=== PATIENT | male | born 1955 | race Caucasian/White ===

== ENCOUNTER → 2017-11-06 03:46 | Outpatient (CLI) | payer BC, SELFPAY ==
[2017-11-06 09:39] LABS: Anion Gap 8.7 mmol/L (3-11); BUN 17 mg/dL (7-18); CO2 30.3 mmol/L (21.0-32.0); CREATININE 1.07 mg/dL (0.70-1.30); Calcium 8.7 mg/dL (8.5-10.1); Chloride 105 mmol/L (98-107); Cholesterol 191 mg/dL (50-200); Glucose 92 mg/dL (70-100); HDL Cholesterol 67 mg/dL (40-60); LDL CHOLESTEROL 112 mg/dL (<100); Potassium 4.7 mmol/L (3.5-5.1); Sodium 144 mmol/L (136-145); Triglyceride 52 mg/dL (30-150)
== END ==
PROVIDERS: PCP Family Medicine; Visit Provider Family Medicine
DX: Z00.00 Encounter for general adult medical examination without abnormal findings (principal); Z13.220 Encounter for screening for lipoid disorders; Z13.228 Encounter for screening for other metabolic disorders
CPT/HCPCS: 36415; 80048; 80061; 83721

== ENCOUNTER 2020-11-07 02:20 | Outpatient (CLI) | payer MEDICARE, SELFPAY ==
[2020-11-07 10:46] LABS: ALT 48 U/L (16-63); AST 32 U/L (15-37); Alkaline Phosphatase 50 U/L (46-116); Anion Gap 8.6 mmol/L (3-11); BUN 21 mg/dL (7-18); Bilirubin, Total 0.6 mg/dL (0.2-1.0); CO2 29.4 mmol/L (21.0-32.0); Chloride 106 mmol/L (98-107); Glucose 96 mg/dL (74-106); Potassium 4.5 mmol/L (3.5-5.1); Sodium 144 mmol/L (136-145)
== END 2020-11-07 02:21 | disposition home or self-care (01) ==
LOC: LOS 02:21
DX: Z00.00 Encounter for general adult medical examination without abnormal findings (principal)
CPT/HCPCS: 36415; 80053

== ENCOUNTER → 2021-10-02 01:13 | Outpatient (CLI) | payer MEDICARE, SELFPAY ==
--- NOTE | 2021-10-02 08:00 | DI.MRI_ITS ---
Exam(s) MR IAC BRAIN WO/W EXAM: MR IAC BRAIN WO/W CLINICAL HISTORY: Left greater than right sensorineural hearing loss TECHNIQUE: Multiplanar multisequence MRI of the brain was performed. Both noninfused and contrast i nfused sequences were performed. IV Contrast injected was cc Dotarem. COMPARISON: No exams were available for comparison FINDINGS: IAC'S: This is a POSITIVE study. On the left side there is a mass lesion measuring 11 millimeters wide by 7 millimeters AP, straddling the IAC and porous acousticus on the left side. Three on the opposite-right side there is no mass a nd the 7th and 8th cranial nerves appear unremarkable within the right internal auditory canal. Following contrast injection this mass exhibits some enhancement. There is no restricted diffusion at this level nor elsewhere in the brain. No hemorrhage. No microh emorrhages. There is no significant signal abnormality in the cerebellar hemispheres nor within the charlene, midbrai n, and thalami nor within the periventricular white matter. There are no ring enhancing lesions in t he brain. No abnormal supratentorial meningeal enhancement. PITUITARY GLAND: No mass nor parasellar abnormality. No obvious abnormality in the cavernous sinuses. FLOW VOIDS: The expected flow void are noted. No evidence of obvious aneurysm nor obvious vascular ma lformation. PARANASAL SINUSES: The visualized paranasal sinuses appear unremarkable. ORBITS: No obvious abnormal findings. IMPRESSION: 1. There is an 11 x 7 millimeter enhancing lesion in the left internal auditory canal as described ab ove, exhibiting some enhancement following contrast injection. 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 2. No other abnormal intracranial findings. DATA REPOSITORY:
[2021-10-02] MEDS: Normal Saline Flush 10 ML SYR IVP (13:42)
[2021-10-02] MEDS: Gadoterate meglumine 20 ML SYRINGE IVP (13:42)
== END ==
PROVIDERS: Visit Provider Otolaryngology
DX: H90.3 Sensorineural hearing loss, bilateral (principal); H93.299 Other abnormal auditory perceptions, unspecified ear; H93.8X2 Other specified disorders of left ear
CPT/HCPCS: 70553; 82565

== ENCOUNTER 2022-07-08 10:58 | Outpatient (CLI) | payer MEDICARE, SELFPAY | END 2022-07-08 10:59 | disposition home or self-care (01) | PROVIDERS: PCP Nurse Practitioner Family; Visit Provider Family Medicine | DX: I48.91 Unspecified atrial fibrillation (principal) | CPT/HCPCS: 93246 ==

== ENCOUNTER 2022-08-12 12:43 | Outpatient (CLI) | payer MEDICARE, SELFPAY ==
--- NOTE | 2022-08-12 12:52 | W.CARDEVENT ---
Date of service: 08/12/22 Time of Service: 12:52 Cardiac Event Recorder Referring Provider:: Cathy Wheeler Indications:: Paroxysmal atrial fibrillation Cardiac Event Note: This is a 14-day cardiac event monitor Patient was in sinus rhythm for 99% of the recording, atrial fibrillation for 0.71%. Average heart rate in sinus was 66. Minimum was 43, maximum 148 There were rare atrial and ventricular ectopic beats Patient was in atrial fibrillation for 2 hours and 14 minutes of the recording, heart rate generally 100. Maximum rate was 170. Patient symptoms were reported. Some of these were associated with premature ventricular contractions, some to normal sinus rhythm, 1 episode to atrial fibrillation rate 125.
== END 2022-08-12 12:44 | disposition home or self-care (01) ==
LOC: CARDOPNVT 12:43
PROVIDERS: PCP Nurse Practitioner Family; Visit Provider Internal Medicine Cardiovascular Disease
DX: I48.0 Paroxysmal atrial fibrillation (principal); I49.1 Atrial premature depolarization; I49.3 Ventricular premature depolarization
CPT/HCPCS: 93248

== ENCOUNTER → 2022-09-11 08:43 | Outpatient (BNVA) | payer MEDICARE, SELFPAY | PROVIDERS: PCP Nurse Practitioner Family; Referring Provider Nurse Practitioner Family; Visit Provider Physical Therapy Assistant | DX: Z12.11 Encounter for screening for malignant neoplasm of colon (principal) ==

== ENCOUNTER 2022-09-24 01:34 | Outpatient (CLI) | payer MEDICARE, SELFPAY ==
--- NOTE | 2022-09-24 13:53 | DI.US_ITS ---
APPROVED REPORT EXAM: Comprehensive 2D, Doppler, and color-flow Echocardiogram Patient Location: Out-Patient [employer] T[employer] Installer: Wilton Cyr RDMS, RVT Indications: afib, eval cardiac structures Other Information Study Quality: Adequate Conclusion Normal left ventricular wall thickness and chamber size. Ejection fraction is 60%. Wall motion is n ormal Normal right ventricular size and systolic function Both atria are normal in size There is no structural or hemodynamically significant valvular disease Wall motion Left Ventricle The left ventricle is normal size. The left ventricular systolic function is normal. The left ventric ular ejection fraction is within the normal range. There is normal left ventricular wall thickness. T here is normal LV segmental wall motion. There is no ventricular septal defect visualized. LVEF is 60 %. Right Ventricle The right ventricle is normal size. The right ventricular systolic function is normal. There is norm al right ventricular wall thickness. Atria The left atrium size is normal. The right atrium size is normal. The interatrial septum is intact wit h no evidence for an atrial septal defect. Aortic Valve The aortic valve is normal in structure. Aortic valve is trileaflet. There is no aortic valvular sten osis. No aortic regurgitation is present. Mitral Valve The mitral valve is normal in structure. No evidence of mitral valve stenosis. Trace to mild mitral r egurgitation. Tricuspid Valve The tricuspid valve is normal in structure. There is no tricuspid valve stenosis. Trivial tricuspid r egurgitation. Unable to assess PA pressure. Pulmonic Valve The pulmonary valve is normal in structure. There is no pulmonic valvular stenosis. Trace pulmonic re gurgitation. Great Vessels The aortic root is normal in size. Ascending aorta is not well visualized. Aortic arch is normal in c aliber. IVC is normal in size and collapses >50% with inspiration. Pericardium There is no pericardial effusion. 2D Dimensions IVSD d PLAX 0.61 cm M: 0.6-1.2 LV Vol A2C d MOD 99.7 mL LVPW d PLAX 0.65 cm M: 0.6 - 1.2 LV Vol A4C d MOD 108.9 mL LVID d PLAX 5.27 cm M: 4.2 - 5.8 LA vol/ BSA A4C s A-L 15.2 mL/m2 LVDs 3.55 cm M: 2.5 - 4.0 LA Area A4C s MOD 14.78 cm2 Ao Root d 3.18 cm M: 3.1 - 3.7 LV EF A4C MOD 56.0 % LV EF Teichholz 59.9 % LV EF A2C MOD 55.4 % LVEF (Campbell's) 54.56 % M: 52 - 72 LV EF Biplane MOD 54.6 % LV Volume 76.84 mL M: 62 - 150 SV 57.98 mL LV Volume Index 34.30 mL/m2 M: 34 - 74 SV Index 25.87 mL/m2 LV Vol Biplane MOD 106.3 mL FS 32.10 % M-Mode TAPSE 1.80 cm (M/F) >1.7 LV Diastology MV E' medial 0.134 (>0.07 m/s) E/A Ratio 0.8 LV E/e MED 3.35 (<14) MV E Vmax 0.45 (0.4-1.3 m/s) MV E' lateral 0.137 (>0.1 m/s) MV A Vmax 0.60 (0.4-1.3 m/s) LV E/e LAT 3.25 (<14) MV E/A Ratio 0.74 MV E/E' medial 3.37 MV E/E' lateral 3.29 Aortic Valve LVOT Area 3.36 cm2 AoV Area Vmax 2.77 cm2 LVOT Vmax 1.05 m/s AoV Area/ BSA (Vmax) 1.24 cm2/m2 LVOT Mean Laz. 0.60 m/s VICKI Mean Laz. 2.39 cm2 LVOT Peak Grad 4.4 mmHg VICKI Mean Laz. Index 1.07 cm2/m2 LVOT Mean Grad 1.8 mmHg LVOT VTI 0.226 m LVOT Diam s 2.05 cm AoV Vmax 1.27 m/s Velocity Ratio 0.83 AoV Mean Laz. 0.85 m/s AoV Peak Grad 6.5 mmHg LVOT SV 75.90 mL AoV Mean Grad 3.2 mmHg AoV VTI 0.228 m AoV Area VTI 3.33 cm2 AoV Area/ BSA (VTI) 1.49 cm/m2 Mitral Valve MV DT 343 (160-240 msec) MV PHT 99 msec MV Area PHT 2.21 cm2 MV VTI 0.209 m MV Area VTI 3.63 (4.0-6.0 cm2) Pulmonary Valve PV Vmax 0.78 (0.5-1.5 m/s) RVOT Peak Gr. 0.85 mmHg PV Peak Grad 2.4 mmHg RVOT Mean Gr. 0.45 mmHg PV Mean Grad 1.1 mmHg RVOT VTI 0.082 m PV VTI 0.112 m RVOT Vmax 0.46 m/s Tricuspid Valve TR Peak Grad 0.0 mmHg TR Vmax 0.00 m/s RA Pressure 0.00 mmHg RVSP (TR) 0.0 mmHg
== END 2022-09-24 01:54 ==
LOC: DI 01:34
PROVIDERS: PCP Nurse Practitioner Family; Visit Provider Family Medicine
DX: I48.91 Unspecified atrial fibrillation (principal)
CPT/HCPCS: 93306

== ENCOUNTER 2022-09-29 07:45 | Day surgery (SDC) | payer MEDICARE, SELFPAY ==
--- NOTE | 2022-09-28 10:59 | W.PM.DSUDISC ---
Date of service: 09/29/22 Time of Service: 09:56 Discharge Plan Disposition Patient Disposition: Home Condition: Good Discharge Details Reason For Visit: Colonoscopy Attending Provider: Emmett Valencia Primary Care Provider: Meri Mercer Home Meds and New Rx's Prescriptions: Discontinued bisacodyl [Dulcolax (bisacodyl)] 5 mg tablet,delayed release (DR/EC) 5 mg PO ONCE Qty: 4 0RF Rx Instructions: Take per colonoscopy instructions provided by ordering providers office polyethylene glycol 3350 17 gram/dose powder 17 g PO ONCE Qty: 238 0RF Rx Instructions: Take per colonoscopy instructions provided by ordering providers office Discharge Instructions Additional Instructions: Pat , we were able to finish her colonoscopy today without any difficulty. It was totally normal. The quality of your preparation was excellent. You will need another colonoscopy in 10 years. 1. If tolerated, consume a soft, low fiber diet for 1-2 days. 2[address] Do not drive, drink alcohol, operate machinery, make critical decisions, or do activities that require coordination or balance for 24 hours. 3. Because air was put into your colon during the procedure, expelling air from your rectum (passing gas or farting) is normal. 4. You may not have a bowel movement for 1-3 days because of the colonoscopy prep. This is normal. 5. Go directly to the emergency room if you notice any of the following: Develop chills (warm to touch), or if you have a thermometer and your temperature is above 101 Difficulty breathing or difficultly swallowing Persistent vomiting Severe abdominal pain, other than gas cramps Severe chest pain Black, tarry stools Any bleeding ? exceeding one tablespoon 6. Call your physician if the site where your intravenous was started becomes red, swollen, painful, and warm to touch. 7. Your physician has reviewed your pre-procedure medications. Please continue to take those medications as previously ordered. You will be given specific information/education regarding any changes to your medications before leaving. Activity:: Activity as Tolerated Diet:: As Tolerated Discharge Orders Discharge Orders: Discharge Order (Routine); Ordered 09/28/22 Ordered By: Emmett Valencia DS: Diagnosis Discharge Diagnosis (1) Colon cancer screening: Status: Acute Asessment and Plan: Negative for screening colonoscopy
--- NOTE | 2022-09-28 11:00 | W.COLOREPORT ---
Date of service: 09/29/22 Time of Service: 09:57 Colonoscopy Report Date of procedure: 09/29/22 Pre-op diagnosis general: Screening colonoscopy Post-op diagnosis procedure note: same Procedure: Colonoscopy Surgeon: Emmett Valencia Anesthesia Type: General:No Airway Estimated blood loss (mL): 0 Pathology: none sent Complications: None Disposition: same day Indications: Kelvin is a 67-year-old male here for his next screening colonoscopy. Prep: Miralax/Dulcolax Procedure Start Time: 09:28 Procedure End Time: 09:44 Retraction Time: 10 Findings: Negative screening colonoscopy Procedure Description: After the induction of monitored anesthetic care, and with the patient in left lateral decubitus position, I began by performing an external anorectal exam.? Perineum and skin were normal, as was the anal verge.? There was no evidence of external hemorrhoids.? Next, I performed a digital rectal exam.? I did not appreciate any abnormal findings.? Next, I advanced a colonoscope into the rectal vault.? I performed retroflexion.? This was normal.? Using insufflation, I then advanced the colonoscope beyond the rectal folds and into the sigmoid colon before advancing towards the cecum.? The quality of the prep was excellent.? The scope was noted to be in the cecum by identification of the ileocecal valve and appendiceal orifice.? I then began withdrawing the colonoscope using repeated irrigation as necessary for full evaluation of the colonic mucosa. ?Once the scope was withdrawn to the level of the rectum, great care was taken to examine portions of the rectal folds.? I did not see any signs of polyps or tumors anywhere within the large intestine. Finally, the scope was withdrawn and the patient was brought to the same-day surgery recovery unit as the anesthetic wore off. ?The findings and instructions were shared with the patient prior to discharge.
[2022-09-29 08:14] VITALS: BP 133/78; PULSE 80; RESP 16; TEMP 36.4; O2SAT 98
[2022-09-29] MEDS: Lactated Ringers 1,000 ML 80 ML IV (08:25)
--- NOTE | 2022-09-29 08:27 | W.ANESPRE ---
General Info Date of Service Date Performed: 09/29/22 Height: 6 ft 2 in Weight: 93.7 kg Body Mass Index (BMI): 26.5 Surgical Procedure: Operation Date: 09/29/22 09:05 Proposed Procedure Side Surgeon p Colonoscopy Emmett Valencia MD Meds Allergies and Home Medications Allergies Allergy/AdvReac Type Severity Reaction Status Date / Time No Known Allergies Allergy Verified 09/29/22 08:07 Current Visit Medications: Current Medications Generic Name Dose Route Start Last Admin Trade Name Freq PRN Reason Stop Dose Admin Hyoscyamine Sulfate 0.125 mg 09/28/22 11:01 Hyoscyamine 0.125 Mg Sl/Oral/Chew SL 10/28/22 11:00 DIRECTED PRN Ringer's Solution 1,000 mls @ 80 mls/hr 09/29/22 06:00 IV 10/26/22 23:59 [facility] IV Miscellaneous Supplies 1 each 09/29/22 06:00 Iv Access IV 10/26/22 23:59 DIRECTED GISELLA Ondansetron HCl 4 mg 09/28/22 11:01 Ondansetron 4 Mg/2 Ml Vial IVP 10/28/22 11:00 Q4H PRN PRN Nausea / Vomiting Sodium Chloride 0 ml 09/29/22 06:00 Normal Saline Flush 10 Ml Syr IV 10/26/22 23:59 PRN PRN Sodium Chloride 0 ml 09/29/22 06:00 Normal Saline 10 Ml Vial IJ 10/26/22 23:59 DIRECTED PRN Sterile Water 0 ml 09/29/22 06:00 Water,Injection,Sterile 10 Ml Vial IJ 10/26/22 23:59 DIRECTED PRN PFSH Active Problems Active Problems: Problem Status Onset Code Alcohol use Z72.89 Knee pain, chronic M25.569, G89.29 Asymmetrical sensorineural hearing loss 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 reports it was a fib, and he had an echo Surgical History Surgical History (Updated 09/29/22 @ 08:08 by Stephanie Mulligan) Arthroplasty of knee pt. reports this was a scope 09/29/2022 Colonoscopy - IV Sedation (10/15/12) DR. LOPEZ; NORMAL EXAM Tonsillectomy and adenoidectomy Tobacco Smoking/Tobacco Use Status: Never Passive smoking exposure: Yes Second hand exposure: Yes Alcohol Alcohol Intake: current Alcohol intake frequency: 3 or more drinks per day Alcohol type: beer Substance Use Substance use: Rarely Substance use type: marijuana Details: alcohol: t-3, 3 beers. Marijuana: unknown Vital Signs and Lab Results Vital Signs Most Recent Vital Signs in EMR: Most Recent Vital Signs Temp Pulse Resp BP Pulse Ox 36.4 C L 80 16 133/78 98 09/29/22 08:14 09/29/22 08:14 09/29/22 08:14 09/29/22 08:14 09/29/22 08:14 Lab Results Blood Type / Crossmatch: No Data to Display Complete Blood Count: No Data to Display Complete Metabolic Panel: No Data to Display Liver Function Panel: No Data to Display Coagulation Panel: No Data to Display Cardiac Panel: No Data to Display Arterial Blood Gas: No Data to Display Venous Blood Gas: No Data to Display Pancreas Panel: No Data to Display Thyroid Panel: No Data to Display Infectious Disease: No Data to Display Blood Cultures: No Data to Display Toxicology Panel: No Data to Display Imaging and Studies Imaging and Studies Study information below may be from another EMR and interpreted by another provider. Please see original notes in EMR for more complete details. Echocardiogram Summary: Conclusion Normal left ventricular wall thickness and chamber size. Ejection fraction is 60%. Wall motion is normal Normal right ventricular size and systolic function Both atria are normal in size There is no structural or hemodynamically significant valvular disease 09/24/22 Anesthesia Assessment and Plan Anesthesia History Personal History: No History of Anesthesia Complications Family History: No Family History of Anesthesia Complications Exercise Tolerance Exercise Tolerance: Metabolic Equivalents>4 Pertinent Negatives Pertinent Negatives: No Symptoms of GERD, No Major Cardiovascular Symptoms or Complaints, No Major Pulmonary Symptoms or Complaints and No History of CVA/TIA Cardiac & Pulmonary Exam Cardiac Exam: Normal S1/S2 Heart Sounds Pulmonary Exam: Clear Bilateral Breath Sounds Implantable Cardiac Device Does patient have a Pacemaker or an ICD?: No Airway Exam Known Difficult Airway: No Mallampati Class: 2 Mouth Opening: Normal (> 3cm) Thyromental Distance: Greater than 3 cm Neck Range of Motion: Full ROM Neck Circumference: Normal Teeth Condition: Normal Dentition ASA Classification ASA Score: ASA 2 Emergency Case?: No NPO Status NPO Status: NPO Clears >2 hours, Solids >8 hours Anesthesia Plan Resuscitation Status: Full Code Anesthesia Technique: General Anesthesia Airway Planned: Natural Airway Monitors Used: Standard Monitors
[2022-09-29 08:51] VITALS: BMI 26.5
[2022-09-29 09:50] VITALS: BP 100/79; PULSE 68; RESP 17; TEMP 36.4; O2SAT 95
--- NOTE | 2022-09-29 10:08 | W.ANESPOSTOP ---
Postoperative Evaluation Date, Time and Location Date Performed: 09/29/22 Time Performed: 09:50 Patient Location: Day Surgery Unit Vital Signs Most Recent Imported Vital Signs: Most Recent Vital Signs Temp Pulse Resp BP Pulse Ox 36.4 C L 68 17 100/79 95 09/29/22 09:50 09/29/22 09:50 09/29/22 09:50 09/29/22 09:50 09/29/22 09:50 Pain Score Most Recent Pain Score: Most Recent Pain Score Pain Level 0 09/29/22 09:50 Assessment Mental Status: Awake (Alert & Oriented to Patient Baseline) Airway and Respiratory Function: Patent airway with normal (patient baseline) respiratory exam Cardiovascular Function: Hemodynamically Stable Hydration Status: Adequately Hydrated Nausea & Vomiting: No Nausea or Vomiting Pain: Pt. Denies Any Pain Peripheral Nerve Block: Patient did not receive a nerve block
[2022-09-29 10:20] VITALS: BP 110/75; PULSE 61; RESP 17; TEMP 36.4; O2SAT 96
== END 2022-09-29 10:27 | disposition home or self-care (01) ==
PROVIDERS: PCP Nurse Practitioner Family; Visit Provider Surgery
PROC: 0DJD8ZZ Inspection of Lower Intestinal Tract, Via Natural or Artificial Opening Endoscopic (ICD-10-PCS; CPT 45378; principal; 2022-09-29 09:00)
DX: Z12.11 Encounter for screening for malignant neoplasm of colon (principal)
CPT/HCPCS: G0121; 45380; J2001

== ENCOUNTER 2022-11-20 01:20 | Outpatient (RCR) | payer MEDICARE, SELFPAY ==
[2022-11-13] MEDS: Rabies Immune Globulin 1,500 UNIT/5 ML VIAL 2000 UNITS IM (08:13)
[2022-11-16 08:03] VITALS: BP 121/82; PULSE 88; RESP 16; TEMP 36.9; O2SAT 98
== END 2022-11-20 23:59 | disposition home or self-care (01) ==
LOC: INF 01:20
PROVIDERS: PCP Nurse Practitioner Family; Visit Provider Nurse Practitioner Family
DX: Z29.14 Encounter for prophylactic rabies immune globulin (principal)
CPT/HCPCS: 90471; 96372; 90675

== ENCOUNTER 2022-11-27 04:06 | Outpatient (RCR) | payer MEDICARE, SELFPAY ==
[2022-11-21 00:11] VITALS: BP 121/82; PULSE 88; RESP 16; TEMP 36.9
== END 2022-12-20 23:59 | disposition home or self-care (01) ==
LOC: INF 04:06
PROVIDERS: PCP Nurse Practitioner Family; Visit Provider Nurse Practitioner Family
DX: Z29.14 Encounter for prophylactic rabies immune globulin (principal); Z20.3 Contact with and (suspected) exposure to rabies
CPT/HCPCS: 90471; 90675

== ENCOUNTER 2023-01-01 13:12 | Outpatient (CLI) | payer MEDICARE, SELFPAY ==
[2023-01-01 11:41] LABS: ALT 39 U/L (16-63); AST 28 U/L (15-37); Albumin 3.8 g/dL (3.4-5.0); Alkaline Phosphatase 52 U/L (46-116); Anion Gap 6.3 mmol/L (3-11); BUN 18 mg/dL (7-18); Bilirubin, Total 0.7 mg/dL (0.2-1.0); CO2 28.7 mmol/L (21.0-32.0); Calcium 9.5 mg/dL (8.5-10.1); Calculated LDL 104 mg/dL (<100); Chloride 104 mmol/L (98-107); Cholesterol 183 mg/dL (<200); Estimated GFR 82.49 (mL/min/1.73m2); Glucose 97 mg/dL (74-106); HDL Cholesterol 68 mg/dL (40-60); Potassium 4.3 mmol/L (3.5-5.1); Sodium 139 mmol/L (136-145); Total Protein 7.5 g/dL (6.4-8.2); Triglyceride 57 mg/dL (<150)
[2023-01-01 12:07] LABS: Hemoglobin A1C 5.4 % (<5.7)
[2023-01-01 19:42] LABS: PSA, Screening 1.1 ng/mL (<=4.5)
== END 2023-01-01 13:13 | disposition home or self-care (01) ==
LOC: LBO 13:12
PROVIDERS: PCP Nurse Practitioner Family; Visit Provider Nurse Practitioner Family
DX: E78.5 Hyperlipidemia, unspecified (principal); R73.01 Impaired fasting glucose; N40.0 Benign prostatic hyperplasia without lower urinary tract symptoms
CPT/HCPCS: 36415; 80053; 80061; 84153; 83036

== ENCOUNTER → 2023-01-23 00:35 | Outpatient (CLI) | payer MEDICARE, SELFPAY ==
--- NOTE | 2023-01-23 07:30 | DI.RAD_ITS ---
Exam(s) XR SHOULDER RT COMPLETE 2+V EXAM: XR SHOULDER RT COMPLETE 2+V CLINICAL HISTORY: right shoulder pain,m25.511. TECHNIQUE: 2D digital imaging was performed. Five views. COMPARISON: No exams were available for comparison FINDINGS: BONES: No acute fracture is present. No bony destructive lesion is seen. JOINTS: No dislocation present. Mild spurring at the AC joint and glenoid. Glenohumeral joint space is maintained. SOFT TISSUE: Calcifications in the which may be along the joint capsule or supraspinatus tendon. Rou nded calcification seen anterior to the humeral head IMPRESSION: Calcific tendinosis. Rounded calcification anterior to the humeral head may be within the upper venkatesh ps tendon sheath.. DATA REPOSITORY: RADIATION DOSE DELIVERED:
== END ==
PROVIDERS: PCP Nurse Practitioner Family; Visit Provider Nurse Practitioner Family
DX: M25.511 Pain in right shoulder (principal); M65.221 Calcific tendinitis, right upper arm
CPT/HCPCS: 73030

== ENCOUNTER 2023-08-28 05:23 | Outpatient (CLI) | payer MEDICARE, SELFPAY ==
[2023-08-31 13:14] LABS: Lyme Ab w Rflx to Lyme Confirm Negative (Negative)
[2023-09-01 20:26] LABS: Anaplasma phagocytophilum Negative (Negative); B. miyamotoi PCR Negative (Negative); Babesia divergens/MO-1 Negative (Negative); Babesia duncani Negative (Negative); Babesia microti Negative (Negative); Ehrlichia chaffeensis Negative (Negative); Ehrlichia ewingii/canis Negative (Negative); Ehrlichia muris eauclairensis Negative (Negative)
== END 2023-08-28 05:24 | disposition home or self-care (01) ==
LOC: LBO 05:23
PROVIDERS: PCP Nurse Practitioner Family; Visit Provider Nurse Practitioner Family
DX: W57.XXXA Bitten or stung by nonvenomous insect and other nonvenomous arthropods, initial encounter (principal); S70.261A Insect bite (nonvenomous), right hip, initial encounter; R53.83 Other fatigue
CPT/HCPCS: 36415; 87798; 86618

== ENCOUNTER 2024-03-25 01:25 | Outpatient (CLI) | payer MEDICARE, SELFPAY ==
[2024-03-25 13:26] LABS: Abs Immature Grans 0.01 10^3/uL (0.0-0.06); Absolute Basophil Count 0.04 10^3/uL (0.0-0.2); Absolute Eosinophil Count 0.28 10^3/uL (0.0-0.7); Absolute Lymphocyte Count 2.39 10^3/uL (1.2-3.4); Absolute Monocyte Count 0.36 10^3/uL (0.1-0.8); Absolute Neutrophil Count 2.41 10^3/uL (1.2-6.7); Basophils % 0.7 %; Eosinophils % 5.1 %; HCT 43.4 % (40.0-50.0); HGB 15.2 g/dL (13.5-17.5); Immature Grans % 0.2 %; Lymphocytes % 43.5 %; MCH 32.5 pg (27.0-33.0); MCV 93 fL (80-95); MPV 9.8 fL (8.0-11.0); Monocytes % 6.6 %; Neutrophils % 43.9 %; Platelet Count 229 10^3/uL (130-400); RBC 4.68 10^6/uL (4.36-5.78); RDW 11.9 % (11.8-14.1); RDW-SD 40.3 fL; WBC 5.49 10^3/uL (4.4-10.8)
[2024-03-25 14:17] LABS: Anion Gap 5.7 mmol/L (3-11); BUN 21 mg/dL (7-18); CO2 31.3 mmol/L (21.0-32.0); CREATININE 1.1 mg/dL (0.70-1.30); Calcium 9.5 mg/dL (8.5-10.1); Chloride 105 mmol/L (98-107); Estimated GFR 73.12 (mL/min/1.73m2); Glucose 95 mg/dL (74-106); Potassium 4.3 mmol/L (3.5-5.1); Sodium 142 mmol/L (136-145); TSH (W/Ref FT4) 4.88 uIU/mL (0.36-3.74)
[2024-03-25 14:33] LABS: FREE T4 0.73 ng/dL (0.76-1.46)
[2024-03-28 10:48] LABS: Hep B Surface Ab Negative (See Note); Hepatitis B Core Antibody Negative (Negative); Hepatitis B Surface Antigen Negative (Negative)
[2024-03-28 11:14] LABS: HIV-1/2 Ag & Ab Screen Negative (Negative)
[2024-03-28 11:34] LABS: Hepatitis C Ab w Rflx HCV PCR Negative (Negative)
== END 2024-03-25 01:26 | disposition home or self-care (01) ==
LOC: LBO 01:25
PROVIDERS: PCP Nurse Practitioner Family; Visit Provider Nurse Practitioner Family
DX: I48.0 Paroxysmal atrial fibrillation (principal); Z11.4 Encounter for screening for human immunodeficiency virus [HIV]; Z11.59 Encounter for screening for other viral diseases
CPT/HCPCS: 36415; 80048; 86704; 86706; 86803; 87340; 87389; 84439; 84443; 85025

== ENCOUNTER 2024-07-22 03:01 | Outpatient (CLI) | payer MEDICARE, SELFPAY ==
[2024-07-22 11:37] LABS: TSH (W/Ref FT4) 4.69 uIU/mL (0.36-3.74)
[2024-07-22 11:55] LABS: FREE T4 0.75 ng/dL (0.76-1.46)
[2024-07-22 19:59] LABS: PSA, Screening 1.2 ng/mL (<=4.5); Thyroglobulin Antibody <15 U/mL (<=60); Thyroperoxidase Antibody 45 U/mL (<=60)
== END 2024-07-22 03:02 | disposition home or self-care (01) ==
LOC: LBO 03:01
PROVIDERS: PCP Nurse Practitioner Family; Visit Provider Nurse Practitioner Family
DX: R79.89 Other specified abnormal findings of blood chemistry (principal); Z12.5 Encounter for screening for malignant neoplasm of prostate
CPT/HCPCS: 36415; 84153; 86376; 84439; 84443

== ENCOUNTER → 2025-03-13 00:53 | Outpatient (CLI) | payer MEDICARE, SELFPAY ==
--- NOTE | 2025-03-13 07:15 | DI.RAD_ITS ---
Exam(s) XR SHOULDER RT COMPLETE 2+V EXAM: XR SHOULDER RT COMPLETE 2+V CLINICAL HISTORY: right shoulder pain,M25.511. TECHNIQUE: 2D digital imaging was performed of the right shoulder. Four images were obtained. AP, Grashey, Y-view and axillary views were obtained. COMPARISON: CR XR SHOULDER RT COMPLETE 2+V from 01/23/2023 FINDINGS: BONES: No acute fracture is present. No bony destructive lesion is seen. JOINTS: No dislocation present. SOFT TISSUE: Soft tissue calcifications are seen adjacent to the greater tuberosity suggesting calcific tendinitis. The calcification adjacent to the greater tuberosity is again seen. IMPRESSION: Calcific tendinosis. DATA REPOSITORY: RADIATION DOSE DELIVERED:
== END ==
LOC: DI 00:53
PROVIDERS: PCP Nurse Practitioner Family; Visit Provider Nurse Practitioner Family
DX: M25.511 Pain in right shoulder (principal); M75.31 Calcific tendinitis of right shoulder
CPT/HCPCS: 73030

== ENCOUNTER 2025-03-21 00:23 | Outpatient (CLI) | payer MEDICARE, SELFPAY ==
[2025-03-21 15:33] LABS: ALT 23 U/L (10-49); AST 26 U/L (<34); Albumin 4.5 g/dL (3.2-5.0); Alkaline Phosphatase 64 U/L (46-116); Anion Gap 8.5 mmol/L (3-11); BUN 20 mg/dL (9-23); Bilirubin, Total 0.9 mg/dL (0.2-1.2); CO2 29.5 mmol/L (20.0-31.0); Calcium 9.6 mg/dL (8.3-10.6); Chloride 105 mmol/L (98-107); Cholesterol 180 mg/dL (<200); Glucose 96 mg/dL (74-106); HDL Cholesterol 59 mg/dL (>or=40); Potassium 4.5 mmol/L (3.5-5.1); Sodium 143 mmol/L (136-145); TSH (W/Ref FT4) 2.98 uIU/mL (0.55-4.78); Total Protein 7.2 g/dL (5.7-8.2)
== END 2025-03-21 00:24 | disposition home or self-care (01) ==
LOC: LBO 00:23
PROVIDERS: PCP Nurse Practitioner Family; Visit Provider Nurse Practitioner Family
DX: R94.6 Abnormal results of thyroid function studies (principal); R79.89 Other specified abnormal findings of blood chemistry; I48.0 Paroxysmal atrial fibrillation; E78.5 Hyperlipidemia, unspecified
CPT/HCPCS: 36415; 80053; 80061; 84443